=== PATIENT | female | born 1985 ===

== ENCOUNTER 2018-08-13 19:30 | Inpatient (IN) | payer OTHER ==
[2018-08-13 20:52] VITALS: BMI 37.2
[2018-08-13 21:45] LABS: BASO % 0.3 % (0.0-2.0); EOS # 0.1 K/uL (0.0-0.7); EOS % 1.1 % (0.0-4.0); LYMPH # 2.5 K/uL (1.0-4.3); LYMPH % 22.3 % (20.0-40.0); MEAN CELL VOLUME 72.9 fL (81.0-99.0); MEAN CORPUSCULAR HEMOGLOBIN 23.1 pg (27.0-31.0); MEAN CORPUSCULAR HGB CONC 31.7 g/dL (33.0-37.0); MEAN PLATELET VOLUME 10.1 fL (7.2-11.7); MONO # 0.8 K/uL (0.0-0.8); MONO % 7.6 % (0.0-10.0); NEUT # 7.6 K/uL (1.8-7.0); NEUT % 68.7 % (50.0-75.0); RBC 5.44 Mil/uL (3.80-5.20); RED CELL DISTRIBUTION WIDTH 14.6 % (11.5-14.5); WHITE BLOOD COUNT 11.1 K/uL (4.8-10.8)
[2018-08-13 21:48] LABS: SQUAMOUS EPITHIAL 1 /hpf (0-5); URINE BACTERIA RARE (<OCC); URINE BILIRUBIN NEGATIVE (NEGATIVE); URINE BLOOD NEGATIVE (NEGATIVE); URINE CLARITY Clear (Clear); URINE COLOR Straw (YELLOW); URINE GLUCOSE (UA) NORMAL (Normal); URINE LEUKOCYTE ESTERASE NEG Leu/uL (Negative); URINE PROTEIN NEGATIVE (NEGATIVE); URINE UROBILINOGEN NORMAL mg/dL (0.2-1.0)
[2018-08-13 21:57] LABS: ALB/GLOB RATIO 1.2 (1.0-2.1); ALBUMIN 4.1 g/dL (3.5-5.0); BLOOD UREA NITROGEN 11 mg/dL (7-17); CALCIUM 9.9 mg/dl (8.6-10.4); GFR NON-AFRICAN AMERICAN > 60
[2018-08-13 21:58] LABS: HEMOGLOBIN 12.6 g/dL (11.0-16.0)
[2018-08-13 21:59] LABS: ALT/SGPT 29 U/L (9-52); AST/SGOT 37 U/L (14-36)
[2018-08-14] MEDS ORDERED: Bupivacaine HCl/FentaNYL Cit 100 ML EPI ONE (00:43)
[2018-08-14] MEDS ORDERED: Oxycodone/Acetaminophen 5/325 mg Tab PO PRN ×2 (04:28)
--- NOTE | 2018-08-14 04:53 | OBDS ---
DELIVERY PERSONNEL Delivery Doctor: DR HENRIQUEZ Lead Generator: Carrie Cheek RN Anesthesiologist: DR PLEITEZ MATERNAL INFORMATION Delivery Anesthesia: Epidural Medications in Delivery: PITOCIN 20 UNITS IN LR Estimated Blood Loss (ml): 200 Placenta Cultured: No Maternal Complications: None Provider Comments: of a viable female from RAO position and over an intact perineum. score s 9_9, BW 7lbs, 11 ox.Bulb syringe utilized to suction the naso and the oropharynx upon delivery of t he head and at completion of the delivery. Cord blood and cord pH collected and sent Placenta complete, with 3 vessels cord. EBL 300 mls Pt and both tolerated the procedure well and remained in LDR room in Stable and Satisfacto ry condition and recovery LABOR SUMMARY EDC: 08/07/2018 00:00 No. Babies in Womb: 1 Attempted: No Labor Anesthesia: Epidural LABOR INFORMATION Reason for Induction: Postterm Onset of Labor: 08/13/2018 22:49 Complete Dilatation: 08/14/2018 03:20 Oxytocin: Induction Group B Beta Strep: Negative Steroids Given: None Reason Steroids Not Administered: Not Applicable MEMBRANES Membranes Rupture Method: Spontaneous Rupture of Membranes: 08/13/2018 22:45 Length of Rupture (hrs): 5.28 Amniotic Fluid Color: Clear Amniotic Fluid Amount: Moderate Amniotic Fluid Odor: Normal STAGES OF LABOR Stage 1 hrs: 4 Stage 1 min: 31 Stage 2 hrs: 0 Stage 2 min: 42 Stage 3 hrs: 0 Stage 3 min: 4 Total Time in Labor hrs: 5 Total Time in Labor min: 17 VAGINAL DELIVERY Episiotomy: None Laceration Extension: Second Degree Laceration Type: Perineal Laceration Repair: Yes Laceration Repair Note: 2-0 Vycril utilized to repair 2nd degree perineal tear amd without complicat ions Initial Vag Sponge Count: 10 Sponge Count Correct: Yes Sharps Count Correct: Yes BABY A INFORMATION Delivery Date/Time: 08/14/2018 04:02 Method of Delivery: Vaginal Born in Route : No : N/A Forceps: N/A Vacuum Extraction: N/A Shoulder Dystocia : No SHOULDER DYSTOCIA BABY A Infant Delivery Date/Time: 08/14/2018 04:02 PRESENTATION/POSITION BABY A Presentation: Cephalic Cephalic Presentation: Vertex Vertex Position: Right Occipital Anterior PLACENTA INFORMATION BABY A Placenta Delivery Time : 08/14/2018 04:06 Placenta Method of Delivery: Spontaneous Placenta Status: Delivered SCORES BABY A Heart Rate 1 min: >100 bpm Resp Effort 1 min: Good Cry Reflex Irritability 1 min: Cough or Sneeze or Pulls Away Muscle Tone 1 min: Active Motion Color 1 min: Body [place], Extremities Blue SCORE 1 MIN: 9 Heart Rate 5 min: >100 bpm Resp Effort 5 min: Good Cry Reflex Irritability 5 min: Cough or Sneeze or Pulls Away Muscle Tone 5 min: Active Motion Color 5 min: Body [place], Extremities Blue SCORE 5 MIN: 9 INFANT INFORMATION BABY A Gestational Age at Delivery: 41.0 Gestational Status: Term Infant Outcome : Liveborn Condition : Stable Infant Sex: Female IDENTIFICATION/MEDS BABY A ID Band Number: [id number] Sensor Number: [id number] WEIGHT/LENGTH BABY A Birthweight (gms): 3500 Infant Weight (lb): 7 Infant Weight (oz): 11 Length Inches: 20.50 Length cms: 52.1 CORD INFORMATION BABY A No. Cord Vessels: 3 Nuchal Cord : N/A Cord Blood Taken: Yes Infant Suction: Mouth; Nose ASSESSMENT BABY A Complications: None Physical Findings at Delivery: Within Normal Limits Respirations: Appears Normal Chief Service Observer/ALS Called : No Care By: DR NICHOLS Transferred To: Remains with Mother
--- NOTE | 2018-08-14 05:07 | OBHP ---
Datetime: 08/13/2018 22:30 IP Adm Impression: Postterm, intrauterine ; Active labor; Intact Membranes IP Admit Plan: Admit to unit; Initiate labor protocol Admit Comment, IP Provider: 32 yo female with an IUP at 41 weeks and admitted for IOL for p ostdates. Admitted to adequate FM and denied LOF, VB or VD. course uneventful. PMHx and PSHx Negative Meds PNV NKDA Social Negative x 3 A/P Postdates and admitted for IOL Irregular contractions NST Reactive Starting active labor and will start with Pitocin Labs, IV ordered Anticipate a vaginal delivery Pelvic Type - PN: Adequate Extremities - PN: Normal Abdomen - PN: Normal Back - PN: Normal Breast - PN: Not Done Lungs - PN: Normal Heart - PN: Normal Thyroid - PN: Normal Neurologic - PN: Normal HEENT - PN: Normal General - PN: Normal Presentation-Admit: Vertex FHR - Baseline A Provider: 140 Membranes, Provider: Intact Gestation - Est Wks by US: 41.0 IP Hx Assessment: The History has been Reviewed and is Current EGA AdmitDate IP: 40.6 Vital Signs Provider: Reviewed IP Chief Complaint: Uterine contractions; Scheduled induction of labor NICHD Variability Prov Fetus A: Moderate 6-25bpm NICHD Accel Fetus A IP Provider: 10X10 FHR Category Provider Fetus A: Category I NICHD Decel Fetus A IP Provider: None Dilatation, Provider: 4 Effacement, Provider: 80 Station, Provider: -2 Genitourinary Exam: Normal DTRs - PN: Normal
--- NOTE | 2018-08-14 05:22 | OBADHP ---
Datetime: 08/13/2018 22:30 Admit Comment, IP Provider: 32 yo female with an IUP at 41 weeks and admitted for IOL for p ostdates. Admitted to adequate FM and denied LOF, VB or VD. course uneventful. PMHx and PSHx Negative Meds PNV NKDA Social Negative x 3 A/P Postdates and admitted for IOL Irregular contractions NST Reactive Starting active labor and will start with Pitocin Labs, IV ordered Anticipate a vaginal delivery Pelvic Type - PN: Adequate Extremities - PN: Normal Abdomen - PN: Normal Back - PN: Normal Breast - PN: Not Done Lungs - PN: Normal Heart - PN: Normal Thyroid - PN: Normal Neurologic - PN: Normal HEENT - PN: Normal General - PN: Normal Presentation-Admit: Vertex FHR - Baseline A Provider: 140 Membranes, Provider: Intact Gestation - Est Wks by US: 41.0 IP Hx Assessment: The History has been Reviewed and is Current Vital Signs Provider: Reviewed IP Chief Complaint: Uterine contractions; Scheduled induction of labor NICHD Variability Prov Fetus A: Moderate 6-25bpm NICHD Accel Fetus A IP Provider: 10X10 FHR Category Provider Fetus A: Category I NICHD Decel Fetus A IP Provider: None Dilatation, Provider: 4 Effacement, Provider: 80 Station, Provider: -2 Genitourinary Exam: Normal DTRs - PN: Normal EGA AdmitDate IP: 40.6 IP Adm Impression: Postterm, intrauterine ; Active labor; Intact Membranes IP Admit Plan: Admit to unit; Initiate labor protocol
[2018-08-14] MEDS: Benzocaine/Menthol 20%-0.5% Topical Spray (60 ml) TOP PRN (07:41)
[2018-08-14] MEDS: Multiple Vitamins Tab PO SCH (10:15)
[2018-08-14 12:31] LABS: BASO % 0.3 % (0.0-2.0); EOS # 0.1 K/uL (0.0-0.7); EOS % 0.5 % (0.0-4.0); HEMOGLOBIN 11.2 g/dL (11.0-16.0); LYMPH # 2.2 K/uL (1.0-4.3); LYMPH % 16.7 % (20.0-40.0); MEAN CELL VOLUME 72.6 fL (81.0-99.0); MEAN CORPUSCULAR HEMOGLOBIN 23.3 pg (27.0-31.0); MEAN CORPUSCULAR HGB CONC 32.1 g/dL (33.0-37.0); MEAN PLATELET VOLUME 10.3 fL (7.2-11.7); MONO # 0.7 K/uL (0.0-0.8); MONO % 5.5 % (0.0-10.0); NRBC % 0.1 % (0.0-2.0); RBC 4.81 Mil/uL (3.80-5.20); RED CELL DISTRIBUTION WIDTH 15.2 % (11.5-14.5)
[2018-08-15 08:26] LABS: BASO % 0.4 % (0.0-2.0); EOS # 0.2 K/uL (0.0-0.7); LYMPH # 2.9 K/uL (1.0-4.3); LYMPH % 28.2 % (20.0-40.0); MEAN CELL VOLUME 73.6 fL (81.0-99.0); MEAN CORPUSCULAR HEMOGLOBIN 23.6 pg (27.0-31.0); MEAN CORPUSCULAR HGB CONC 32.1 g/dL (33.0-37.0); MONO # 0.5 K/uL (0.0-0.8); MONO % 5.2 % (0.0-10.0); NEUT # 6.7 K/uL (1.8-7.0); NEUT % 64.2 % (50.0-75.0); RBC 5.08 Mil/uL (3.80-5.20); RED CELL DISTRIBUTION WIDTH 14.8 % (11.5-14.5); WHITE BLOOD COUNT 10.4 K/uL (4.8-10.8)
[2018-08-15] MEDS: Multiple Vitamins Tab PO SCH (13:16)
--- NOTE | 2018-08-15 16:24 | OBPPN ---
Datetime: 08/15/2018 08:42 PP Pain Prov: Within normal limits PP Nausea Prov: Denies PP Flatus Prov: Yes PP BM Prov: No PP Breasts Prov: Not Done PP Heart Prov: Normal PP Lungs Prov: Normal PP Abdomen/Uterus Prov: Normal PP Lochia Prov: Normal PP Vulva/Perineum Prov: Normal PP CVA Tenderness Prov: Normal PP Extremities Prov: Normal PP Comments Phys Exam Prov: Fundus firm and non-tender PP Impression Prov: Normal progression PP Plan Prov: Continue present management PP Progress Note Prov: SUBJECTIVE: Patient was seen and examined at bedside this AM. She reports some pain at the site of perineal saavedra tures but otherwise offers no new complaints. She admits to flatus but denies having a BM yet. She re ports lochia is decreasing. She is tolerating regular diet well without nausea/vomiting. She is breas t feeding and has started every 2 hours. OBJECTIVE: fundal height slightly below umbilicus, post H/H 12/37.4, other normal exam findings as abo ve ASSESSEMENT: 32 yo F now s/p PPD1 with 2nd degree perineal laceration repaired. Stable and Satisfactory condition and recovery PLAN: Continue breast feeding consult Encouraged patient to increase fluid intake with breast feeding Encourage Sitz baths and start on Hydrocortisone cream to perineum Encourage to take Motrin in a regular basis to decrease inflammation besides pain killers. Advance care Hope to discharge home in AM Patient seen, examined, and plan discussed with Dr. Sylvain Christian, DO, PGY-1 Patient seen and examined with Dr. Christian and after full discussion, I agreed with hs Assessmen t and Plan. IP PP Procedures: None Vital Signs Provider PP: Reviewed; Within Normal Limits
[2018-08-16 00:26] VITALS: O2SAT 98
[2018-08-16 08:22] VITALS: BP 122/83; PULSE 87; RESP 18
[2018-08-16] MEDS: Multiple Vitamins Tab PO SCH (09:32)
[2018-08-16] MEDS: Benzocaine/Menthol 20%-0.5% Topical Spray (60 ml) TOP PRN (09:32)
--- NOTE | 2018-08-16 14:19 | OBDCSUM ---
Datetime: 08/16/2018 12:04 Discharged to, Provider: Home Follow up at, Provider: [facility] Disch Instr Activity: Normal activity Disch Instr Diet: Regular Discharge Diet restrict Prov: none Discharge Instructions, Provider: Routine instructions given Discharge Diagnosis, Provider: Term Delivered Discharge Time: 08/16/2018 12:05 Follow up in weeks, Provider: 6 weeks Disch Referrals: None Contraception discussed, Prov: Yes Disch Activity Restrictions: No exercising; No lifting; No driving; Minimize walking; Minimize stair -climbing; No sexual activity; Nothing in vagina - [place], tampons, douche Discharge Comment, Provider: PPD # 2 S/P stable and Satisfactory condition and recovery Mild viral URI and advised to take Day and Nite Quil and Robitussin prn Continue Pelvic rest x 6-8 weeks Increase po water intake F/Up in Clinic in 4-6 weeks Discharge home with instructions and Rx for Motrin Contraception after Delivery: Undecided
[2018-08-16] MEDS ORDERED: Influenza Vaccine 60 mcg/0.5 mL SYR (4YR UP) IM ONE (17:10)
[2018-08-16 19:59] VITALS: TEMP 97.8
== END 2018-08-16 15:58 | disposition home or self-care (01) | DRG 373 ==
LOC: C.EROB 19:30 → C.4D 20:30 → C.4M 08-14 06:30
PROVIDERS: ADMIT Obstetrics & Gynecology; ATTEND Obstetrics & Gynecology
PROC: 10E0XZZ Delivery of Products of Conception, External Approach (ICD-10-PCS; principal; 2018-08-13)
PROC: 0KQM0ZZ Repair Perineum Muscle, Open Approach (ICD-10-PCS; 2018-08-13)
DX: O48.0 Post-term pregnancy (principal); Z37.0 Single live birth; Z3A.41 41 weeks gestation of pregnancy; O70.1 Second degree perineal laceration during delivery; O99.89 Other specified diseases and conditions complicating pregnancy, childbirth and the puerperium; J06.9 Acute upper respiratory infection, unspecified